=== PATIENT | male | born 1985 | race Caucasian/White ===

== ENCOUNTER 2022-09-28 11:02 | Emergency (ER) | payer SELFPAY ==
[~2022-09-28] VITALS: Ht 190.5 cm; Wt 107.3 kg
[2022-09-28] MEDS ORDERED: LIPITOR20 MG PO (11:16)
[2022-09-28] MEDS ORDERED: VYVANSE20 MG PO (11:17)
[2022-09-28] MEDS ORDERED: SYNTHROID112 MCG PO (11:17)
[2022-09-28 11:20] LABS: BASOPHILS 0.3 % (0-2); EOSINOPHILS 4.9 % (0-6); HEMOGLOBIN 16.3 g/dL (12.0-18.0); LYMPHOCYTES 26.1 % (24-44); MCH 29.7 (27-36); MCHC 33.9 g/dl (30-36); MCV 87.7 fl (81-99); MONOCYTES 12.8 % (0-12); NEUTROPHILS 55.9 % (39-80); PLATELET COUNT 357 K/uL (140-440); RBC 5.48 M/ul (4.3-5.7); RDW 13.6 (10.5-15.0)
[2022-09-28 11:37] LABS: ALBUMIN 4.7 g/dL (3.4-5.0); ALBUMIN/GLOBULIN RATIO 1.18 (1.1-2.4); ANION GAP 12.7 (7-21); BILIRUBIN, TOTAL 0.3 ng/dL (0.2-1.0); BUN/CREATININE RATIO 13.27 (6.0-28.6); CALCIUM 9.8 mg/dL (8.5-10.1); CREATININE, SERUM 1.13 mg/dL (0.70-1.30); MAGNESIUM 1.9 mg/dL (1.8-2.4); POTASSIUM 3.7 mmol/L (3.5-5.1); PROTEIN, TOTAL 8.7 g/dL (6.4-8.2)
[2022-09-28 12:23] LABS: BILIRUBIN, URINE NEGATIVE (negative); BLOOD/HGB, URINE NEGATIVE (Negative); KETONE, URINE NEGATIVE (Negative); LEUK ESTERASE, URINE NEGATIVE (negative); NITRITE, URINE NEGATIVE (negative); PH, URINE 7.5 (5-7)
[2022-09-28] MEDS ORDERED: PREDNISONE20 MG PO (13:55)
[2022-09-28] MEDS ORDERED: MECLIZINE HCL25 MG PO (13:55)
[2022-09-28] MEDS ORDERED: AMOX TR-K CLV1 EAC1 PO (13:55)
[2022-09-28 14:33] VITALS: BP 152/93
== END 2022-09-28 14:11 | disposition home or self-care (01) ==
LOC: ED 11:02
PROVIDERS: Family Medicine
DX: J32.9 Chronic sinusitis, unspecified (principal); E03.9 Hypothyroidism, unspecified; Z79.899 Other long term (current) drug therapy
CPT/HCPCS: 36415; 70450; 70498; 80053; 81003; 83735; 85025; Q9967